=== PATIENT | female | born 1930 | race Caucasian/White ===

== ENCOUNTER → 2017-05-22 | Outpatient (CLI) | payer BC, OTHER ==
[~2017-05-22] MED LIST: ACET650T82 PO; CYM30 PO; DIPH25TA24 PO; DLN/100 PO; LEVO112T4 PO; LORA-741 PO; NAPR1TAB9 PO; NRV/5 PO; OMEP40CA41 PO; ONDA4TAB46 PO; TRAZ1TAB5 PO; ULT50HP PO; VTMD PO
--- NOTE | 2017-05-22 16:20 | MAMMOGRAPHY REPORT ---
BILATERAL DIGITAL SCREENING MAMMOGRAM WITH CAD: 05/22/2017 CLINICAL HISTORY: Routine screening. Patient has no complaints. TECHNIQUE: Bilateral CC and MLO views were obtained. Current study was also evaluated with a Computer Aided Detection (CAD) system. COMPARISON: Comparison is made to exams dated: 04/02/2016 mammogram, 03/30/2015 mammogram - [facility], 03/04/2014 mammogram - [facility], 03/04/2014 mammogram, 12/16/2012 ultrasound - [facility], and 04/13/2015 ultrasound - [facility]. BREAST COMPOSITION: There are scattered areas of fibroglandular density in both breasts. FINDINGS: There are mild vascular calcifications and scattered benign coarse and rim calcifications i n the breasts. No suspicious mass, architectural distortion or cluster of suspicious microcalcificat ions is seen. IMPRESSION: ACR BI-RADS CATEGORY 1: NEGATIVE There is no mammographic evidence of malignancy. A 1 year screening mammogram is recommended. The pa tient will receive written notification of the results. Approximately 10% of breast cancers are not detected with mammography. A negative mammographic report should not delay biopsy if a clinically suggestive mass is present. Destiney Stratton M.D. ay/:05/22/2017 15:54:38 Materials Assistant: Shannan WOOTEN)(Maninder), [facility] letter sent: Normal 1/2 BI-RADS Code: ACR BI-RADS Category 1: Negative
== END | disposition home or self-care (01) ==
LOC: C.MAMM 14:59
PROVIDERS: ATTEND Physician Assistant
DX: Z12.31 Encounter for screening mammogram for malignant neoplasm of breast (principal)

== ENCOUNTER → 2017-06-05 | Outpatient (CLI) | payer BC ==
--- NOTE | 2017-06-05 14:23 | DIAGNOSTIC IMAGING REPORT ---
RIGHT KNEE 1 OR 2 VIEWS ROUTINE CLINICAL HISTORY: 87 years-old Female presenting with RT KNEE PAIN, history of arthritis and hip and back pain for several years. TECHNIQUE: Frontal and lateral views of the right knee were obtained. COMPARISON: None. FINDINGS: Tricompartmental degenerative changes worst in the lateral compartment, where there is significant osteophytosis, joint space loss, subchondral sclerosis, and suggestion of subchondral cystic change likely along the medial aspect of the lateral tibial plateau. Ossific loose body noted anteriorly in the medial compartment. The knee joint is congruent. Small effusion may be present. No acute fracture. Atherosclerosis. IMPRESSION: 1. Tricompartmental degenerative change worst in the lateral compartment, where there is osteophytosis, joint space loss, subchondral sclerosis and likely subchondral cystic change. 2. Loose body in the medial compartment. Electronically signed by: Beni Santos M.D. 06/05/2017 2:22 PM Dictated Date/Time: 06/05/2017 2:18 PM
[2017-06-05 14:32] LABS: BASO % 0.5 %; BASO ABS # 0.04 K/uL (0-0.2); COMPLETE YES; EOS % 3.9 %; IG% 0.1 %; LYMPH ABS # 2.82 K/uL (1.2-3.4); MEAN CELL VOLUME 91.5 fL (80-100); MEAN CORPUSCULAR HEMOGLOBIN 29.5 pg (25-34); MEAN CORPUSCULAR HGB CONC 32.2 g/dl (32-36); MEAN PLATELET VOLUME 9.5 fL (7.4-10.4); MONO % 7.4 %; NEUT % 50.1 %; PLATELET COUNT 301 K/uL (130-400); RED BLOOD COUNT 4.48 M/uL (4.2-5.4); WHITE BLOOD COUNT 7.43 K/uL (4.8-10.8)
[2017-06-05 15:03] LABS: ALT/SGPT 20 U/L (12-78); BLOOD UREA NITROGEN 14 mg/dl (7-18); BUN/CREATININE RATIO 14.2 (10-20); CALCIUM 8.7 mg/dl (8.5-10.1); CARBON DIOXIDE 29 mmol/L (21-32); CHLORIDE 105 mmol/L (98-107); GLUCOSE 102 mg/dl (70-99); POTASSIUM 3.8 mmol/L (3.5-5.1); SODIUM 140 mmol/L (136-145)
[2017-06-05 15:13] LABS: ALKALINE PHOSPHATASE 98 U/L (45-117); AST/SGOT 15 U/L (15-37); THYROID STIMULATING HORMONE 0.876 uIu/ml (0.300-4.500)
--- NOTE | 2017-06-12 11:17 | CODING QUERY MEDICAL NECESSITY ---
CQSUPPORTING DIAGNOSIS NEEDED A supporting diagnosis is required for the test/procedure performed on this patient in order for us to be reimbursed by the patient's insurance. Please provide a supporting diagnosis for the following test/procedure listed below next to the test name along with your signature. *If there is no additional diagnosis for this patient that would support the following test/procedure please document that below next to the test/procedure. Test(s)/Procedure(s) that require a supporting diagnosis: DOS 06/05/17 VITAMIN D TEST VITAMIN B12 TEST TESTS ORDERED BY ANIKA DELVALLE Provider Signature: Date: Thank you Virginia Kohli [facility] Information Management Once completed, please kindly fax back to [phone] For questions please call [phone]
== END | disposition home or self-care (01) ==
LOC: C.LAB 13:22
PROVIDERS: ATTEND Physician Assistant
DX: M25.561 Pain in right knee (principal); M23.41 Loose body in knee, right knee; E03.9 Hypothyroidism, unspecified

== ENCOUNTER → 2017-11-06 | Outpatient (CLI) | payer BC ==
[~2017-11-06] MED LIST changes: +TRAZ-120 PO; -TRAZ1TAB5 PO
[2017-11-12 12:14] LABS: ANTI-CENTROMERE AB <1.0 NEG AI (<1.0 NEG); ANTI-SS-A <1.0 NEG AI (<1.0 NEG); ANTI-SS-B <1.0 NEG AI (<1.0 NEG); DNA ds CRITHIDIA NEGATIVE (NEGATIVE); MICROSOMAL AB <1 IU/ML (<9); Sm Antibody <1.0 NEG AI (<1.0 NEG)
== END | disposition home or self-care (01) ==
LOC: C.LABMFLN 15:45
PROVIDERS: ATTEND Physician Assistant
DX: R51 Headache (principal)

== ENCOUNTER → 2017-11-12 | Outpatient (CLI) | payer BC ==
[~2017-11-12] MED LIST changes: +GADAVIST IV PRN; -TRAZ-120 PO; +TRAZ1TAB48 PO
--- NOTE | 2017-11-12 16:08 | DIAGNOSTIC IMAGING REPORT ---
MRI OF THE BRAIN WITHOUT AND WITH IV CONTRAST CLINICAL HISTORY: Headaches and lightheadedness. History of subdural hematoma. COMPARISON STUDY: MRI the brain February 28, 2015. TECHNIQUE: Utilizing a 1.5 Meenu magnet and dedicated coil, multiplanar, multiecho imaging of the brain was performed pre and postcontrast administration. IV administration of 11 mL of Gadavist contrast was uneventful. FINDINGS: There are no foci of restricted diffusion. No acute intracranial hemorrhage, midline shift or mass effect is present. Moderate atrophy is noted. Ventricular dilatation is stable and likely due to atrophy. The basilar cisterns are patent. There are no extra axial collections. Prominence of the extra axial CSF spaces is likely due to atrophy. No intracranial mass or pathologic enhancement is present. Moderate white matter T2 hyperintense foci suggest small vessel disease. A 1.1 cm right parietal calvarial lesion is unchanged. This is benign given stability. Orbits, sinuses and mastoid air cells are unremarkable. IMPRESSION: 1. No acute intracranial findings. 2. No intracranial mass or pathologic enhancement. 3. Moderate atrophy and small vessel disease. Electronically signed by: Cesar Reed M.D. 11/12/2017 4:06 PM Dictated Date/Time: 11/12/2017 4:00 PM
[2017-11-12 17:31] LABS: ALBUMIN 3.8 gm/dl (3.4-5.0); ALKALINE PHOSPHATASE 105 U/L (45-117); ALT/SGPT 15 U/L (12-78); AST/SGOT 16 U/L (15-37); BLOOD UREA NITROGEN 17 mg/dl (7-18); CARBON DIOXIDE 28 mmol/L (21-32); CREATININE 0.88 mg/dl (0.60-1.20); GLUCOSE 89 mg/dl (70-99); POTASSIUM 4.2 mmol/L (3.5-5.1); SODIUM 138 mmol/L (136-145); TOTAL PROTEIN 7.3 gm/dl (6.4-8.2)
== END | disposition home or self-care (01) ==
LOC: C.MRI 14:07
PROVIDERS: ATTEND Physician Assistant
DX: R51 Headache (principal); R42 Dizziness and giddiness; I62.00 Nontraumatic subdural hemorrhage, unspecified; I67.9 Cerebrovascular disease, unspecified

== ENCOUNTER → 2018-03-12 | Outpatient (CLI) | payer BC ==
[~2018-03-12] MED LIST changes: -GADAVIST IV PRN; +TRAZ-120 PO; -TRAZ1TAB48 PO
--- NOTE | 2018-03-12 15:06 | DIAGNOSTIC IMAGING REPORT ---
TWO VIEW CHEST CLINICAL HISTORY: Cough. FINDINGS: PA and lateral chest radiographs are compared to study dated 12/08/2014. There is a large hiatal hernia. The cardiomediastinal silhouette is unremarkable. Left basilar atelectasis is observed. Chronic interstitial thickening is similar to previous. The lungs and pleural spaces are otherwise clear. There is no pneumothorax. The skeletal structures are osteopenic. The bony thorax appears intact. Cholecystectomy clips are identified in the right upper quadrant. IMPRESSION: 1. No active disease in the chest. 2. Large hiatal hernia. Electronically signed by: Alexander Bailon M.D. 03/12/2018 3:04 PM Dictated Date/Time: 03/12/2018 3:03 PM
== END | disposition home or self-care (01) ==
LOC: C.RAD1850 14:48
PROVIDERS: ATTEND Physician Assistant
DX: R05 Cough (principal); K44.9 Diaphragmatic hernia without obstruction or gangrene

== ENCOUNTER → 2018-07-06 | Outpatient (CLI) | payer BC ==
[~2018-07-06] MED LIST changes: -TRAZ-120 PO; +TRAZ1TAB48 PO
[2018-07-06 18:31] LABS: BASO % 0.4 %; BASO ABS # 0.03 K/uL (0-0.2); EOS % 3.4 %; EOS ABS # 0.26 K/uL (0-0.5); HEMATOCRIT 41.2 % (37-47); HEMOGLOBIN 13.4 g/dL (12.0-16.0); IG# 0.02 K/uL (0.00-0.02); LYMPH % 35.6 %; LYMPH ABS # 2.75 K/uL (1.2-3.4); MEAN CELL VOLUME 89.4 fL (80-100); MEAN CORPUSCULAR HEMOGLOBIN 29.1 pg (25-34); MEAN CORPUSCULAR HGB CONC 32.5 g/dl (32-36); MEAN PLATELET VOLUME 10.8 fL (7.4-10.4); MONO % 8.2 %; MONO ABS # 0.63 K/uL (0.11-0.59); NEUT % 52.1 %; NEUT ABS # 4.03 K/uL (1.4-6.5); PLATELET COUNT 280 K/uL (130-400); RED CELL DISTRIBUTION WIDTH CV 14.5 % (11.5-14.5); WHITE BLOOD COUNT 7.72 K/uL (4.8-10.8)
[2018-07-06 19:45] LABS: ALBUMIN 3.8 gm/dl (3.4-5.0); ALKALINE PHOSPHATASE 101 U/L (45-117); ALT/SGPT 15 U/L (12-78); AST/SGOT 16 U/L (15-37); BLOOD UREA NITROGEN 13 mg/dl (7-18); CARBON DIOXIDE 29 mmol/L (21-32); CREATININE 1.12 mg/dl (0.60-1.20); GLUCOSE 97 mg/dl (70-99); POTASSIUM 3.7 mmol/L (3.5-5.1); SODIUM 138 mmol/L (136-145); TOTAL PROTEIN 7.5 gm/dl (6.4-8.2)
== END | disposition home or self-care (01) ==
LOC: C.LABMFLN 14:43
PROVIDERS: ATTEND Physician Assistant
DX: E53.8 Deficiency of other specified B group vitamins (principal); E55.9 Vitamin D deficiency, unspecified; E03.9 Hypothyroidism, unspecified

== ENCOUNTER → 2018-07-07 | Outpatient (CLI) | payer BC | END | disposition home or self-care (01) | LOC: C.LABMFLN 07:39 | PROVIDERS: ATTEND Physician Assistant | DX: R32 Unspecified urinary incontinence (principal) ==